=== PATIENT | male | born 1965 | race African-American/Black ===

== ENCOUNTER 2020-07-10 11:39 | Observation (INO) ==
[2020-07-10] MEDS ORDERED: Labetalol IV 5 MG/ML 20 ml VIAL IV PUSH ONE (11:58)
[2020-07-10 12:17] LABS: ABS Lymphocytes 1.3 10^3/ul (1.0-4.8); ABS Monocytes 0.4 10^3/ul (0-0.8); ABS Neutrophils 1.3 10^3/ul (1.5-7.7); Eosinophil % 1.5 %; Hematocrit 35 % (42-52); Hemoglobin 12.2 g/dL (14.0-18.0); Lymphocyte % 40.9 %; Mean Corpuscular HGB Conc 35 g/dL (31-36); Mean Corpuscular Hemoglobin 30 pg (27-31); Mean Corpuscular Volume 86 fL (80-94); Mean Platelet Volume 6.6 fL (7.4-10.4); Nucleated Red Blood Cells % 0.2; Platelet Count 310 10^3/uL (150-450); Red Blood Count 4.04 10^6 /uL (4.18-5.48); Red Cell Distribution Width 13 % (10-15); White Blood Count 3.1 10^3/uL (3.5-10.8)
[2020-07-10 12:25] LABS: INR 0.97 (0.82-1.09)
[2020-07-10 12:36] LABS: Troponin I 0.02 ng/mL (<0.03)
[2020-07-10 12:37] LABS: ALT 37 U/L (7-52); Albumin/Globulin Ratio 1.3 (1-3); Alkaline Phosphatase 102 U/L (34-104); Blood Urea Nitrogen 14 mg/dL (6-24); CO2 Carbon Dioxide 23 mmol/L (22-32); Calcium 8.7 mg/dL (8.6-10.3); Chloride 102 mmol/L (101-111); EGFR African American 101.6 (>60); EGFR Non-African American 83.9 (>60); Globulin 3.1 g/dL (2-4); Glucose 98 mg/dL (70-100); Sodium 136 mmol/L (135-145); Total Protein 7.1 g/dL (6.4-8.9)
[2020-07-10 12:42] LABS: Anion Gap 11 mmol/L (2-11)
[2020-07-10] MEDS ORDERED: Ondansetron 4 mg VIAL 2 MG/ML 2 ml VIAL IV PRN (13:45)
[2020-07-10 13:53] LABS: C Reactive Protein 1.57 mg/L (<8.01)
[2020-07-10 15:18] LABS: Potassium Redraw 4.3 mmol/L (3.5-5.0)
[2020-07-10 16:41] LABS: Ferritin 235.1 ng/mL (24-336)
[2020-07-10] MEDS: Enoxaparin 40 MG/0.4 ML SYR SUBCUT SCH (16:41)
[2020-07-10 16:48] LABS: Total Iron Binding Capacity 349 mcg/dL (250-450); Transferrin 249 mg/dL (203-362); Vitamin B12 116 pg/mL (180-914)
[2020-07-10 17:01] LABS: Troponin I 0.02 ng/mL (<0.03)
[2020-07-10 17:56] LABS: Troponin I 0.03 ng/mL (<0.03)
[2020-07-10 18:47] LABS: Folate 3.36 ng/mL (5.90-24.80)
[2020-07-10] MEDS ORDERED: Folic Acid 1 mg SYRINGE 0.2 ML SYRINGE IV SCH (20:00)
[2020-07-10] MEDS ORDERED: Cyanocobalamin INJ 1,000 MCG/ML VIAL 1 ML VIAL IM ONE (20:00)
[2020-07-10] MEDS: Folic Acid IV 1 MG in NS 0.9% 50 ML 50 ML IVPB SCH (21:26)
[2020-07-11 06:22] LABS: ABS Lymphocytes 1.2 10^3/ul (1.0-4.8); ABS Monocytes 0.4 10^3/ul (0-0.8); ABS Neutrophils 1.5 10^3/ul (1.5-7.7); Eosinophil % 1.1 %; Hematocrit 33 % (42-52); Hemoglobin 11.4 g/dL (14.0-18.0); Lymphocyte % 38.5 %; Mean Corpuscular HGB Conc 35 g/dL (31-36); Mean Corpuscular Hemoglobin 30 pg (27-31); Mean Corpuscular Volume 87 fL (80-94); Mean Platelet Volume 6.7 fL (7.4-10.4); Nucleated Red Blood Cells % 0.1; Platelet Count 288 10^3/uL (150-450); Red Blood Count 3.73 10^6 /uL (4.18-5.48); Red Cell Distribution Width 13 % (10-15); White Blood Count 3.1 10^3/uL (3.5-10.8)
[2020-07-11 06:37] LABS: CO2 Carbon Dioxide 23 mmol/L (22-32); Calcium 8.6 mg/dL (8.6-10.3); Chloride 104 mmol/L (101-111); Magnesium 2.1 mg/dL (1.9-2.7); Sodium 136 mmol/L (135-145)
[2020-07-11 06:38] LABS: Anion Gap 9 mmol/L (2-11); Iron 82 ug/dL (50-212)
[2020-07-11 06:43] LABS: Blood Urea Nitrogen 13 mg/dL (6-24); Cholesterol 247 mg/dL; EGFR African American 104.1 (>60); EGFR Non-African American 86.1 (>60); Glucose 79 mg/dL (70-100); HDL Cholesterol 52.3 mg/dL
[2020-07-11 07:28] LABS: Triglycerides 1404 mg/dL; Troponin I 0.03 ng/mL (<0.03)
[2020-07-11] MEDS ORDERED: Cyanocobalamin INJ 1,000 MCG/ML VIAL 1 ML VIAL IM ONE (08:34)
[2020-07-11 08:39] LABS: LDL Cholesterol Direct 53 mg/dL
[2020-07-11] MEDS: Folic Acid IV 1 MG in NS 0.9% 50 ML 50 ML IVPB SCH (08:45)
[2020-07-11] MEDS: Enoxaparin 40 MG/0.4 ML SYR SUBCUT SCH (14:57)
[2020-07-11 20:02] LABS: TSH Ultra Thyroid Stim Horm 1.01 mcIU/mL (0.34-5.60)
[2020-07-11 20:04] LABS: Free T4 0.64 ng/dL (0.61-1.12)
[2020-07-12 07:43] VITALS: BP 118/84
[2020-07-12] MEDS: Folic Acid IV 1 MG in NS 0.9% 50 ML 50 ML IVPB SCH (08:38)
== END 2020-07-12 11:14 | disposition home or self-care (01) ==
LOC: MEDTELE 11:39 → ED 11:39 → MEDTELE 15:58
PROVIDERS: ADMIT Hospitalist; ATTEND Internal Medicine